=== PATIENT | male | born 1970 | race Caucasian/White ===

== ENCOUNTER 2017-08-22 06:22 | Emergency (ER) | payer MEDICARE, MEDICAID ==
[~2017-08-22] VITALS: Ht 167.6 cm; Wt 86.9 kg
[~2017-08-22 06:22] MED LIST: CLON-527 PO; DIAZ5TAB PO; PERM60CR19 TP; PRED20TA PO
[2017-08-22] MEDS ORDERED: sulfamethoxazole/trimethoprim DS (800/160mg) tablet PO ONE (07:00)
[2017-08-22] MEDS ORDERED: triamcinolone acetonide 40mg/ml inj IM ONE (07:00)
[2017-08-22] MEDS ORDERED: DIPH25CA83 PO (07:05)
[2017-08-22] MEDS ORDERED: SULF1TAB48 PO (07:05)
[2017-08-22] MEDS ORDERED: diphenhydrAMINE 25mg capsule PO ONE (07:10)
[2017-08-22 07:33] VITALS: BP 128/69
== END 2017-08-22 07:34 | disposition home or self-care (01) ==
LOC: ER 06:23
DX: L73.9 Follicular disorder, unspecified (principal); L03.113 Cellulitis of right upper limb; B86 Scabies; G89.29 Other chronic pain; Z88.0 Allergy status to penicillin
CPT/HCPCS: 10060; 87070; 87077; 87186; 96372; 99284; A6449; J3301; Q0163

== ENCOUNTER 2023-01-09 11:28 | Emergency (ER) | payer BC, MEDICAID ==
[~2023-01-09] VITALS: Ht 175.3 cm; Wt 90.0 kg
[~2023-01-09 11:28] MED LIST changes: -DIAZ5TAB PO; +HYDR-3972 PO; -PERM60CR19 TP; -PRED20TA PO
[2023-01-09 11:35] VITALS: BP 124/91
[2023-01-09] MEDS ORDERED: FAMO-128 PO (12:19)
[2023-01-09] MEDS ORDERED: PRED20TA PO (12:19)
[2023-01-09] MEDS ORDERED: DIPH50CA40 PO (12:19)
[2023-01-09] MEDS ORDERED: famotidine 20mg tablet PO ONE (12:20)
[2023-01-09] MEDS ORDERED: diphenhydrAMINE 25mg capsule PO ONE (12:20)
[2023-01-09] MEDS ORDERED: predniSONE 20 mg tablet PO SCH (12:31)
[2023-01-10] MEDS ORDERED: predniSONE 20 mg tablet PO ONE (12:31)
== END 2023-01-09 12:42 | disposition home or self-care (01) ==
LOC: ER 11:29
DX: L23.7 Allergic contact dermatitis due to plants, except food (principal)
CPT/HCPCS: 99284; J7512; Q0163

== ENCOUNTER → 2023-05-14 | Emergency (ER) | payer BC, MEDICAID ==
[~2023-05-14] VITALS: Ht 170.2 cm; Wt 74.8 kg
[~2023-05-14] MED LIST changes: +CEFD300C3 PO; +DIPH50CA40 PO; +FAMO-128 PO
[2023-05-14 16:00] LABS: BASOPHILS # (AUTO) 0.1 X10'3 (0-0.2); BASOPHILS % (AUTO) 0.7 % (0-1); EOSINOPHILS # (AUTO) 0.1 X10'3 (0-0.9); EOSINOPHILS % (AUTO) 0.9 % (0-6); HEMATOCRIT 43.8 % (42.0-52.0); HEMOGLOBIN 14.2 g/dl (14.0-17.9); LYMPHOCYTES # (AUTO) 1.6 X10'3 (1.1-4.8); LYMPHOCYTES % (AUTO) 14.4 % (21-51); MEAN CORPUSCULAR HGB CONC 32.4 g/dL (33.0-36.5); MEAN CORPUSCULAR VOLUME 86.4 FL (78-98); MEAN PLATELET VOLUME 7.9 FL (7.4-10.4); MONOCYTES % (AUTO) 8.7 % (2-12); NEUTROPHILS # (AUTO) 8.6 X10'3 (1.8-7.7); NEUTROPHILS % (AUTO) 75.3 % (42-75); PLATELET COUNT 271 X10'3 (140-440); RED BLOOD COUNT 5.06 X10'6 (4.70-6.10); RED CELL DISTRIBUTION WIDTH 16.1 % (11.5-14.5); WHITE BLOOD COUNT 11.4 X10'3 (4.5-11.0)
[2023-05-14 16:15] LABS: ALANINE AMINOTRANSFERASE 26 U/L (12-78); ALBUMIN 3.1 G/DL (3.4-5.0); ALBUMIN/GLOBULIN RATIO 0.9 (1.1-1.5); ALKALINE PHOSPHATASE 99 IU/L (46-116); ANION GAP 6 (8-16); ASPARTATE AMINO TRANSFERASE 19 U/L (10-37); BILIRUBIN,TOTAL 1.2 MG/DL (0.1-1.0); BLOOD UREA NITROGEN 16 MG/DL (7-18); BUN/CREATININE RATIO 16.8 (10.0-20.0); CALCIUM 9.2 MG/DL (8.5-10.1); CHLORIDE 104 MMOL/L (99-107); CREATININE 0.95 MG/DL (0.60-1.10); GLUCOSE 127 MG/DL (70-104); SODIUM 138 MMOL/L (135-145); TOTAL CARBON DIOXIDE 27.8 MMOL/L (24-32); TOTAL PROTEIN 6.7 G/DL (6.4-8.2); eCRCL 84 ML/MIN; eGFR 83 ML/MIN
[2023-05-14 16:23] LABS: PRO BRAIN NATRIURETIC PEPTIDE 3350 PG/ML (0-125)
--- NOTE | 2023-05-14 19:42 | NUR ---
CARDIAC MONITORS CANCELLED BY PROVIDER D/T BEING RESPIRATORY POSSIBLE BRONCHITIS.
[2023-05-14 19:56] VITALS: BP 124/95; PULSE 110; RESP 18; TEMP 98.3; O2SAT 100
== END | disposition home or self-care (01) ==
LOC: ER 15:36
DX: J40 Bronchitis, not specified as acute or chronic (principal); F31.9 Bipolar disorder, unspecified; G89.29 Other chronic pain; M54.9 Dorsalgia, unspecified; Z88.0 Allergy status to penicillin; Z88.8 Allergy status to other drugs, medicaments and biological substances; Z79.899 Other long term (current) drug therapy
CPT/HCPCS: 36415; 71046; 80053; 83880; 84484; 85025; 87040; 93005; 99285

== ENCOUNTER 2023-12-01 15:44 | Outpatient (CLI) | payer BC, MEDICAID ==
[~2023-12-01 15:44] MED LIST changes: -CEFD300C3 PO; -CLON-527 PO; +COR3.125T PO; -DIPH50CA40 PO; +EMPA10TA PO; -FAMO-128 PO; +FURO-150 PO; -HYDR-3972 PO; +LISI2.5T14 PO; +SPIR25TA PO
== END 2023-12-01 23:59 | disposition home or self-care (01) ==
LOC: RAD 15:44
PROVIDERS: ATTEND Student in an Organized Health Care Education/Training Program
DX: R06.02 Shortness of breath (principal)
CPT/HCPCS: 71046